=== PATIENT | male | born 1990 | race American Indian/Alaskan Native ===

== ENCOUNTER 2021-08-22 00:23 | Emergency (ER) | payer SELFPAY ==
[2021-08-22 00:34] VITALS: BP 160/88
[2021-08-22] MEDS ORDERED: TETANUS,DIPHTHERIA TOXOID ADULT 0.5 ML INJ IM ONE (01:12)
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
== END 2021-08-22 02:45 | disposition home or self-care (01) ==
LOC: ED 00:23
DX: S60.511A Abrasion of right hand, initial encounter (principal); W34.09XA Accidental discharge from other specified firearms, initial encounter; Y93.89 Activity, other specified; Y92.89 Other specified places as the place of occurrence of the external cause; Y99.8 Other external cause status
CPT/HCPCS: 90471; 90714; 99283